=== PATIENT | male | born 1940 | race Caucasian/White ===

== ENCOUNTER → 2017-03-30 | Outpatient (CLI) | payer MEDICARE, BC | END | disposition home or self-care (01) | LOC: PCVCIMAG 09:18 | PROVIDERS: ATTEND Internal Medicine Cardiovascular Disease | DX: I65.23 Occlusion and stenosis of bilateral carotid arteries (principal); I25.10 Atherosclerotic heart disease of native coronary artery without angina pectoris; I10 Essential (primary) hypertension; R00.1 Bradycardia, unspecified | CPT/HCPCS: 80061; 93005; 93880; G0463 ==

== ENCOUNTER → 2018-06-22 | Outpatient (CLI) | payer MEDICARE, BC | END | disposition home or self-care (01) | LOC: PCVCIMAG 09:03 | DX: I10 Essential (primary) hypertension (principal); I25.10 Atherosclerotic heart disease of native coronary artery without angina pectoris; I65.22 Occlusion and stenosis of left carotid artery; I73.9 Peripheral vascular disease, unspecified; E11.9 Type 2 diabetes mellitus without complications; E78.5 Hyperlipidemia, unspecified; Z87.891 Personal history of nicotine dependence; Z79.82 Long term (current) use of aspirin | CPT/HCPCS: 80061; 93005; 93880; G0463 ==

== ENCOUNTER → 2019-04-18 | Outpatient (CLI) | payer MEDICARE, BC ==
--- NOTE | 2019-04-18 10:12 | PCVCIMAG ---
EXAM: BILATERAL CAROTID DUPLEX INDICATION: Carotid Occlusive Disease. FINDINGS: Doppler Measurements (centimeters per second): RIGHT: Peak CCA-93, Peak ECA-106, Diastolic ICA-16, Peak ICA-110, ICA/CCA Ratio-1.2. LEFT: Peak CCA-100, Peak ECA-97, Diastolic ICA-22, Peak ICA-121, ICA/CCA Ratio-1.2. RIGHT CAROTID: The carotid bulb has moderate plaque. The proximal internal carotid artery shows <40% stenosis. The common carotid artery shows no significant stenosis. The external carotid artery shows no significant stenosis. LEFT CAROTID: The carotid bulb has mild plaque. The proximal internal carotid artery shows <40% stenosis. The common carotid artery shows no significant stenosis. The external carotid artery shows no significant stenosis. Antegrade flow in both vertebral arteries. IMPRESSION: <40% stenosis of the right internal carotid artery with moderate plaque. <40% stenosis of the left internal carotid artery with mild plaque. LOC:[place] [address]
== END | disposition home or self-care (01) ==
LOC: PCVCIMAG 09:21
PROVIDERS: ATTEND Internal Medicine Cardiovascular Disease
DX: I65.23 Occlusion and stenosis of bilateral carotid arteries (principal); I25.10 Atherosclerotic heart disease of native coronary artery without angina pectoris; E78.00 Pure hypercholesterolemia, unspecified; I10 Essential (primary) hypertension; I73.9 Peripheral vascular disease, unspecified; E11.9 Type 2 diabetes mellitus without complications; Z87.891 Personal history of nicotine dependence; Z79.82 Long term (current) use of aspirin
CPT/HCPCS: 36415; 80061; 93005; 93880; G0463

== ENCOUNTER → 2019-08-15 | Outpatient (CLI) | payer MEDICARE, BC ==
--- NOTE | 2019-08-15 12:18 | PCVCIMAG ---
APPROVED REPORT Study performed: 08/15/2019 10:39:58 Exam: Stress Echocardiogram Indication: CAD, htn, dm Patient Location: Echo lab Stress Nurse: Mercedes You RN Status: routine Ht: 5 ft 9 in HR: 50 bpm BP: 134/70 mmHg Rhythm: Bradycardia Procedure The patient underwent an Exercise Stress Test using the Liam Protocol. Blood pressure, heart rate, and EKG were monitored. An Echocardiogram was performed by manufacturing test technician in four stages in quad fashion. At peak stress, four selected images were obtained and placed side by side with resting images for comparison. Stress Test Details Stress Test: Exercise stress testing was performed using a Liam protocol. HR Resting HR: 50 bpmMax Heart Rate (APMHR): 143 bpm Max HR Achieved: 134 bpmTarget HR (85% APMHR): 121 bpm % of APMHR: 93 Recovery HR: 77 bpm HR response to stress: Normal HR response to stress BP Resting BP: 134/70 mmHg Max BP: 164/88 mmHg Recovery BP: 126/62 mmHg BP response to stress: Normal blood pressure response to stress. ECG Resting ECG: Sinus Bradycardia Stress ECG: Sinus Rhythm ST Change: Normal Arrhythmia: frequent isolated PVCs and couplet PVCs, one triplet PVC Recovery ECG: Sinus Rhythm Recovery ST Change: Normal Recovery Arrhythmia: frequent PACs and PVCs Clinical Reason for Termination: Maximal effort Stress Symptoms: Dyspnea, Leg Fatigue Exercise duration: 6 min 16 sec Highest Stage Achieved: Stage 3: 3.4 mph at 14% grade. Exercise capacity: 7.7 METs Overall Exercise Capacity for Age: Normal Scale: Sedentary Angina Score: None Pre-Stress Echo The resting Echocardiogram showed normal left ventricular contractility with an estimated Ejection Fraction of about >55%. The resting echocardiogram demonstrated normal wall motion in all wall segments. Post-Stress Echo The stress Echocardiogram showed normal left ventricular contractility with an estimated Ejection Fraction of about 60-65%. Compared to rest, there were no stress-induced wall motion abnormalities. Clinical No clinical or ECG evidence for ischemia. Conclusion Clinical Response: Non-ischemic Exercise Capacity: Average Stress ECG Response: Non-ischemic Stress Echo Images: Non-ischemic The left ventricle is normal in size and wall thickness in both the rest and stress images. Mild tricuspid regurgitation with PAP of 39 mmHg and mild-moderate pulmonic insufficiency. Normal mitral and aortic valves, no regurgitation or stenosis. Other Information Study Quality: Adequate <Conclusion> The left ventricle is normal in size and wall thickness in both the rest and stress images. Mild tricuspid regurgitation with PAP of 39 mmHg and mild-moderate pulmonic insufficiency. Normal mitral and aortic valves, no regurgitation or stenosis.
--- NOTE | 2019-08-15 16:59 | PCVCIMAG ---
EXAM: AORTOILIAC DUPLEX INDICATION: Peripheral arterial disease FINDINGS: AORTA: Suprarenal aorta measures maximum diameter of 2.6 cm. There is not a fusiform infrarenal aortic aneurysm. The infrarenal aorta measures maximum diameter of 2.4 cm. No aortic stenosis. RIGHT COMMON ILIAC ARTERY: Maximum diameter is 1.4 cm. No significant stenosis. RIGHT EXTERNAL ILIAC ARTERY: No significant stenosis. LEFT COMMON ILIAC ARTERY: Maximum diameter is 1.2 cm. No significant stenosis. LEFT EXTERNAL ILIAC ARTERY: No significant stenosis. IMPRESSION: No abdominal aortic aneurysm. No aortoiliac stenosis seen. Previous right iliac stents maintaining adequate patency. LOC:[place] [id number]
== END | disposition home or self-care (01) ==
LOC: PCVCIMAG 09:48
PROVIDERS: ATTEND Internal Medicine Cardiovascular Disease
DX: I25.10 Atherosclerotic heart disease of native coronary artery without angina pectoris (principal); I73.9 Peripheral vascular disease, unspecified; R00.1 Bradycardia, unspecified; I08.8 Other rheumatic multiple valve diseases; I10 Essential (primary) hypertension; E08.00 Diabetes mellitus due to underlying condition with hyperosmolarity without nonketotic hyperglycemic-hyperosmolar coma (NKHHC); E78.5 Hyperlipidemia, unspecified; E78.00 Pure hypercholesterolemia, unspecified; Z95.820 Peripheral vascular angioplasty status with implants and grafts; Z87.891 Personal history of nicotine dependence
CPT/HCPCS: 93325; 93351; 93978